=== PATIENT | male | born 1970 | race African-American/Black ===

== ENCOUNTER 2017-09-27 09:13 | Emergency (ER) | payer BC, OTHER ==
[2017-09-27 10:07] LABS: APPEARANCE,URINE CLEAR; BILIRUBIN,URINE NEGATIVE (NEGATIVE); COLOR,URINE STRAW; GLUCOSE, URINE >=500 mg/dL (NEGATIVE); KETONES,URINE NEGATIVE (NEGATIVE); LEUKOCYTE ESTERASE,URINE NEGATIVE (NEGATIVE); NITRITE,URINE NEGATIVE (NEGATIVE); PROTEIN,URINE NEGATIVE (NEGATIVE); URINE SPECIFIC GRAVITY 1.026; UROBILINOGEN,URINE NEGATIVE mg/dL (<2.0)
--- NOTE | 2017-09-27 10:35 | RADIOLOGY REPORT (SQ) ---
EXAM DESCRIPTION: CT HEAD WITHOUT COMPLETED DATE/TIME: 09/27/2017 10:20 am REASON FOR STUDY: dizzy COMPARISON: None. TECHNIQUE: Axial images acquired through the brain without intravenous contrast. Images reviewed wi th bone, brain and subdural windows. Images stored on PACS. All CT scanners at this facility use dose modulation, iterative reconstruction, and/or weight based d osing when appropriate to reduce radiation dose to as low as reasonably achievable (ALARA). [facility]: Dose Right [facility]: CareDose [facility]: Dose Right [facility]: Teradose 4D [facility]: [employer] RADIATION DOSE: CT Rad equipment meets quality standard of care and radiation dose reduction techniq ues were employed. CTDIvol: 64.6 mGy. DLP: 1163 mGy-cm. mGy. LIMITATIONS: None. FINDINGS: VENTRICLES: Normal size and contour. CEREBRUM: No masses. No hemorrhage. No midline shift. No evidence for acute infarction. Normal gra y/white matter differentiation. No areas of low density in the white matter. CEREBELLUM: No masses. No hemorrhage. No alteration of density. No evidence for acute infarction. EXTRAAXIAL SPACES: No fluid collections. No masses. ORBITS AND GLOBE: No intra- or extraconal masses. Normal contour of globe without masses. CALVARIUM: No fracture. PARANASAL SINUSES: Fluid left maxillary sinus. SOFT TISSUES: No mass or hematoma. OTHER: No other significant finding. IMPRESSION: NORMAL BRAIN CT WITHOUT CONTRAST. EVIDENCE OF ACUTE STROKE: NO. COMMENT: Quality ID # [id number]: Final reports with documentation of one or more dose reduction techniques (e.g., Automated exposure control, adjustment of the mA and/or kV according to patient size, use of iterative reconstruction technique) TECHNICAL DOCUMENTATION: JOB ID: [id number] All Rights Reserved
[2017-09-27] MEDS ORDERED: AMLODIPINE BESYLATE 10 MG TABLET PO ONE (10:37)
[2017-09-27 10:42] LABS: ABSOLUTE BASOPHILS # (AUTO) 0.1 10^3/uL (0.0-0.2); ABSOLUTE EOSINOPHILS # (AUTO) 0.1 10^3/uL (0.0-0.6); ABSOLUTE LYMPHOCYTES (AUTO) 2.5 10^3/uL (0.5-4.7); ABSOLUTE MONOCYTES (AUTO) 0.3 10^3/uL (0.1-1.4); ABSOLUTE NEUT (AUTO) 2.9 10^3/uL (1.7-8.2); BASOPHILS % (AUTO) 0.9 % (0-2); EOSINOPHILS % (AUTO) 1.7 % (0-6); HEMATOCRIT 42.2 % (37.9-51.0); HEMOGLOBIN 14.3 g/dL (13.5-17.0); LYMPHOCYTES % (AUTO) 42.7 % (13-45); MEAN CORPUSCULAR HEMOGLOBIN 28.4 pg (27.0-33.4); MEAN CORPUSCULAR HGB CONC 33.9 g/dL (32.0-36.0); MEAN CORPUSCULAR VOLUME 84 fl (80-97); MONOCYTES % (AUTO) 5.6 % (3-13); PLATELET COUNT 191 10^3/uL (150-450); RED BLOOD COUNT 5.04 10^6/uL (4.35-5.55); SEGMENTED NEUTROPHILS % (AUTO) 49.1 % (42-78); TOTAL CELLS COUNTED % (AUTO) 100 %; WHITE BLOOD COUNT 5.9 10^3/uL (4.0-10.5)
[2017-09-27] MEDS ORDERED: NORMAL SALINE 1000 ML 1,000 ML IV ONE (10:57)
[2017-09-27 11:03] LABS: ALANINE AMINOTRANSFERASE 41 U/L (21-72); ALBUMIN 4.1 g/dL (3.5-5.0); ALKALINE PHOSPHATASE 111 U/L (38-126); ANION GAP 9 (5-19); ASPARTATE AMINO TRANSFERASE 42 U/L (17-59); BILIRUBIN,DIRECT 0.4 mg/dL (0.0-0.4); BILIRUBIN,TOTAL 0.6 mg/dL (0.2-1.3); BLOOD UREA NITROGEN 11 mg/dL (7-20); CALCIUM 9.7 mg/dL (8.4-10.2); CARBON DIOXIDE 26 mmol/L (22-30); CHLORIDE 98 mmol/L (98-107); CREATINE KINASE 394 U/L (55-170); GLUCOSE 372 mg/dL (75-110); LIPASE 64.3 U/L (23-300); POTASSIUM 4.7 mmol/L (3.6-5.0); SODIUM 133.3 mmol/L (137-145); TOTAL PROTEIN 7.5 g/dL (6.3-8.2)
--- NOTE | 2017-09-27 11:09 | ER Document Report ---
ED General - General Chief Complaint: Dizziness Stated Complaint: DIZZY Time Seen by Provider: 09/27/17 09:25 Mode of Arrival: Ambulatory Information source: Patient Notes: 47-year-old male presents with complaints of dizziness not feeling well, patient denies any fevers or chills notes that he has not taken his blood pressure medication amlodipine appropriately. - HPI Onset: Last week Onset/Duration: Persistent Quality of pain: No pain Severity: Mild Pain Level: Denies Associated symptoms: Other - Dizziness Exacerbated by: Denies Relieved by: Denies Similar symptoms previously: No Recently seen / treated by doctor: No - Related Data Allergies/Adverse Reactions: No Known Allergies Allergy (Verified 09/27/17 09:17) Past Medical History - Social History Smoking Status: Never Smoker Cigarette use (# per day): No Chew tobacco use (# tins/day): No Smoking Education Provided: No Frequency of alcohol use: None Drug Abuse: None Family History: Reviewed & Not Pertinent Patient has suicidal ideation: No Patient has homicidal ideation: No - Past Medical History Cardiac Medical History: Reports: Hx Hypertension Renal/ Medical History: Denies: Hx Peritoneal Dialysis Past Surgical History: Reports: Hx Appendectomy, Hx Orthopedic Surgery - bilateral knees Review of Systems - Review of Systems Notes: REVIEW OF SYSTEMS: CONSTITUTIONAL : Denies fever, chills, or sweats. Denies recent illness. EENT: Denies eye, ear, throat, or mouth pain or symptoms. Denies nasal or sinus congestion or discharge. Denies throat, tongue, or mouth swelling or difficulty swallowing. CARDIOVASCULAR: Denies chest pain. Denies palpitations or racing or irregular heart beat. Denies ankle edema. RESPIRATORY: Denies cough, cold, or chest congestion. Denies shortness of breath, difficulty breathing, or wheezing. GASTROINTESTINAL: Denies abdominal pain or distention. Denies nausea, vomiting , or diarrhea. Denies blood in vomitus, stools, or per rectum. Denies black, tarry stools. Denies constipation. GENITOURINARY: Denies difficulty urinating, painful urination, burning, frequency, blood in urine, or discharge. MUSCULOSKELETAL: Denies back or neck pain or stiffness. Denies joint pain or swelling. SKIN: Denies rash, lesions or sores. HEMATOLOGIC : Denies easy bruising or bleeding. LYMPHATIC: Denies swollen, enlarged glands. NEUROLOGICAL: Admits dizziness PSYCHIATRIC: Denies anxiety or stress. Denies depression, suicidal ideation, or homicidal ideation. ALL OTHER SYSTEMS REVIEWED AND NEGATIVE. Dictation was performed using [employer] voice recognition software PHYSICAL EXAMINATION: GENERAL: Well-appearing, well-nourished and in no acute distress. HEAD: Atraumatic, normocephalic. EYES: Pupils equal round and reactive to light, extraocular movements intact, sclera anicteric, conjunctiva are normal. ENT: Nares patent, oropharynx clear without exudates. Moist mucous membranes. NECK: Normal range of motion, supple without lymphadenopathy LUNGS: Breath sounds clear to auscultation bilaterally and equal. No wheezes rales or rhonchi. HEART: Regular rate and rhythm without murmurs ABDOMEN: Soft, nontender, nondistended abdomen. No guarding, no rebound. No masses appreciated. Musculoskeletal: Normal range of motion, no pitting or edema. No cyanosis. NEUROLOGICAL: Cranial nerves grossly intact. Normal speech, normal gait. Normal sensory, motor exams PSYCH: Normal mood, normal affect. SKIN: Warm, Dry, normal turgor, no rashes or lesions noted. Physical Exam - Vital signs Vitals: Temp Pulse Resp BP Pulse Ox 98 F 85 14 169/107 H 99 09/27/17 09:20 09/27/17 09:20 09/27/17 09:20 09/27/17 09:20 09/27/17 09:20 Course - Re-evaluation Re-evalutation: Patient is noted to be hypertensive, his complaints are for medication refill but I will order extensive workup to rule out any life-threatening issues 09/27/17 11:09 blood sugar is 304 09/27/17 12:23 medicine consulted for management of new onset diabetes 09/27/17 13:20 Dr. Huang requests patient be started on Lipitor 80 mg daily as well as be started on metformin 500 mg twice daily Patient will be given follow-up with primary care physician After performing a Medical Screening Examination, I estimate there is LOW risk for RUPTURED ESOPHAGUS, PNEUMOTHORAX, PULMONARY EMBOLISM, ACUTE CORONARY SYNDROME, OR THORACIC AORTIC DISSECTION, thus I consider the discharge disposition reasonable. I have reevaluated this patient multiple times and no significant life threatening changes are noted. The patient and I have discussed the diagnosis and risks, and we agree with discharging home with close follow-up. We also discussed returning to the Emergency Department immediately if new or worsening symptoms occur. We have discussed the symptoms which are most concerning (e.g., bloody sputum, worsening pain or shortness of breath) that necessitate immediate return. - Vital Signs Vital signs: Temp Pulse Resp BP Pulse Ox 98 F 85 16 169/107 H 99 09/27/17 09:20 09/27/17 09:20 09/27/17 09:42 09/27/17 09:20 09/27/17 09:20 - Laboratory Result Diagrams: 09/27/17 10:15 09/27/17 10:15 Laboratory results interpreted by me: 09/27/17 09/27/17 09/27/17 09:44 10:15 10:15 Sodium 133.3 L Glucose 372 H POC Glucose Hemoglobin A1c % > 14.0 H Creatine Kinase 394 H Urine Glucose (UA) >=500 H 09/27/17 10:45 Sodium Glucose POC Glucose 305 H Hemoglobin A1c % Creatine Kinase Urine Glucose (UA) - Diagnostic Test Radiology reviewed: Image reviewed, Reports reviewed Critical Care Note - Critical Care Note Total time excluding time spent on procedures (mins): 34 Comments: 34 minutes of critical care time spent in direct contact evaluating and reevaluating the patient, treating symptoms, reviewing labs and studies and speaking with family and consultants excluding any procedures Discharge - Discharge Clinical Impression: New onset type 2 diabetes mellitus, Hypertension, uncontrolled Condition: Stable Disposition: HOME, SELF-CARE Instructions: Diabetes ([facility]) Additional Instructions: Follow up with your physician tomorrow for further care or return to the ED IMMEDIATELY if symptoms worsen or new concerns occur. If you cannot afford to follow up with your primary care physician a list of low cost clinics have been provided at the end of your discharge papers as well. Prescriptions: Atorvastatin Calcium [Lipitor 80 mg Tablet] 80 mg PO QHS #30 tablet RX: Amlodipine Besylate [Norvasc 10 mg Tablet] 20 mg PO DAILY #30 tablet RX: Metformin HCl [Glucophage 500 mg Tablet] 500 mg PO BID #60 tablet
[2017-09-27 11:14] LABS: CREATINE KINASE MB 2.73 ng/mL (<4.55)
[2017-09-27 11:15] LABS: TROPONIN I < 0.012 ng/mL
[2017-09-27 13:23] VITALS: BP 140/95
--- NOTE | 2017-09-27 14:48 | PDOC CONSULTATION ---
Consultation Consult Date: 09/27/17 Attending physician:: FABBY FINK Consult reason:: New diabetes diagnosis History of Present Illness Admission Date/PCP: None, seen at the [facility] Patient complains of: lightheadness History of Present Illness: LOGAN GALVIN SR is a 47 year old male with history of HTN who presents with one day of lightheadness and dizziness. Patient states that over last week had noticed vague abdominal symptoms including nausea and increased queasiness. Also has noticed increased thirst and urinary frequency. Has history of HTN and has been on Norvasc for a "while" however has not taken it the last 2 weeks. Over last year has been more stressed. Diet is poor, per his . He has not been exercising and has noticed some weight gain. Denies recent illnesses, fevers, chills, CP, SOB, vomiting. Father has diabetes. Followed at the [facility] but has not been seen in over 6 months and is scheduled to see a provider in December 2017. Consulted by ED provider for management of new diabetes. Past Medical History Cardiac Medical History: Reports: Hypertension Past Surgical History Past Surgical History: Reports: Appendectomy, Orthopedic Surgery - bilateral knees Social History Information Source: Patient Smoking Status: Never Smoker Frequency of Alcohol Use: Rare Hx Recreational Drug Use: No Family History Family History: Reviewed & Not Pertinent Parental Family History Reviewed: Yes - Father with diabetes, no other hx of DM per pt Children Family History Reviewed: NA Sibling(s) Family History Reviewed.: NA Medication/Allergy Home Medications: Amlodipine Besylate [Norvasc 10 mg Tablet] 20 mg PO DAILY #30 tablet 09/27/17 Atorvastatin Calcium [Lipitor 80 mg Tablet] 80 mg PO QHS #30 tablet 09/27/17 Metformin HCl [Glucophage 500 mg Tablet] 500 mg PO BID #60 tablet 09/27/17 Allergies/Adverse Reactions: No Known Allergies Allergy (Verified 09/27/17 09:17) Physical Exam Vital Signs: Temp Pulse Resp BP Pulse Ox 98 F 78 20 140/95 H 98 09/27/17 09:20 09/27/17 13:59 09/27/17 13:59 09/27/17 13:59 09/27/17 13:59 Intake & Output 09/26/17 09/27/17 09/28/17 06:59 06:59 06:59 Weight 141.9 kg General appearance: PRESENT: no acute distress, obese Head exam: PRESENT: atraumatic, normocephalic Mouth exam: PRESENT: moist Teeth exam: ABSENT: poor dentation Neck exam: PRESENT: full ROM Respiratory exam: PRESENT: unlabored. ABSENT: tachypnea Cardiovascular exam: PRESENT: RRR, +S1, +S2. ABSENT: systolic murmur GI/Abdominal exam: PRESENT: guarding, soft. ABSENT: firm, tenderness Musculoskeletal exam: PRESENT: full ROM Neurological exam: PRESENT: alert, awake, CN II-XII grossly intact Psychiatric exam: ABSENT: anxious Results Laboratory Results: 09/27/17 10:15 09/27/17 10:15 09/27/17 09/27/17 09/27/17 09:44 10:15 10:15 WBC 5.9 RBC 5.04 Hgb 14.3 Hct 42.2 MCV 84 MCH 28.4 MCHC 33.9 RDW 14.0 Plt Count 191 Seg Neutrophils % 49.1 Lymphocytes % 42.7 Monocytes % 5.6 Eosinophils % 1.7 Basophils % 0.9 Absolute Neutrophils 2.9 Absolute Lymphocytes 2.5 Absolute Monocytes 0.3 Absolute Eosinophils 0.1 Absolute Basophils 0.1 Sodium 133.3 L Potassium 4.7 Chloride 98 Carbon Dioxide 26 Anion Gap 9 BUN 11 Creatinine 0.59 Est GFR ( Amer) > 60 Est GFR (Non-Af Amer) > 60 Glucose 372 H Calcium 9.7 Total Bilirubin 0.6 AST 42 ALT 41 Alkaline Phosphatase 111 Total Protein 7.5 Albumin 4.1 Lipase 64.3 Urine Color STRAW Urine Appearance CLEAR Urine pH 6.0 Ur Specific [place] 1.026 Urine Protein NEGATIVE Urine Glucose (UA) >=500 H Urine Ketones NEGATIVE Urine Blood NEGATIVE Urine Nitrite NEGATIVE Ur Leukocyte Esterase NEGATIVE Urine WBC (Auto) 0 Urine RBC (Auto) 1 09/27/17 09/27/17 10:15 10:15 Creatine Kinase 394 H CK-MB (CK-2) 2.73 Troponin I < 0.012 Impressions: Head CT 09/27/17 09:51 IMPRESSION: NORMAL BRAIN CT WITHOUT CONTRAST. EVIDENCE OF ACUTE STROKE: NO. Assessment & Plan - Diagnosis (2) Obesity Qualifiers: Obesity type: due to excess calories Obesity classification: adult class 3 (BMI >= 40) Serious obesity comorbidity presence: without serious comorbidity Is this a current diagnosis for this admission?: Yes Plan: Patient presenting with lightheadness/dizziness, polyuria, polydipsia. - ER labs notable for glucose 372, HgA1c >14%, and urine glucose >500 - Long discussion of diabetes diagnosis, management, and potential micro vascular and macro vascular complications - Ideally pt should be started on insulin since Hg>10%. However I did not feel comfortable starting patient on Insulin as patient has never received insulin education, does not have glucometer at home, and currently does not have close PCP follow-up - Admission to hospital would have been ideal however patient wanted to be discharged to home - Script given for Metformin 500mg BID which can be increased to 1000mg BID if tolerated. - [facility] with provider to start Insulin, receiving appropriate home supplies, and, receive diabetes counseling - Discussed importance of diet and exercise - Script given for [id number] qhs given high lifetime ASCVD risk (69%, based on estimated/conservative lipid profile, likely to be higher with actual lipid profile) - RN gave information about diabetic diet and list of local PCPs (3) Hypertension, uncontrolled Is this a current diagnosis for this admission?: Yes Plan: On Amlodipine at home. Has not been taking for last 2 weeks - Script for amlodipine 20mg daily - Should also be on Lisinopril given diabetes diagnosis. Will defer to PCP to start. - Goal SBP <130 - Time Time Spent: 30 to 50 Minutes Anticipated discharge: Home Disposition: Discharge to home from ER with close outpatient follow up
--- NOTE | 2017-09-27 16:01 | EKG REPORT ---
SEVERITY:- ABNORMAL ECG - SINUS RHYTHM VENTRICULAR PREMATURE COMPLEX LEFT ANTERIOR FASCICULAR BLOCK : Confirmed by: Miguel A Lamb MD 27-Sep-2017 16:00:47
== END 2017-09-27 14:00 | disposition home or self-care (01) ==
LOC: ER 09:13
DX: E11.9 Type 2 diabetes mellitus without complications (principal); I10 Essential (primary) hypertension; R42 Dizziness and giddiness
CPT/HCPCS: 93005; 99284; 96360; 36415; 82553; 82962; 82550; 83690; 85025; 80053; 81001; 84484; 83036; 70450; 93010; J7030

== ENCOUNTER 2018-05-30 04:35 | Emergency (ER) | payer BC ==
--- NOTE | 2018-05-30 05:00 | ER Document Report ---
Doctor's Note Notes: 05/30/18 04:59 I performed a quick triage evaluation the patient. Patient is a 47-year-old male who presents with complaint of palpitations. No chest pain associated with it. The symptoms started tonight. Says only thing he can think that he did differently was that he did have some caffeine today. He has some cough in the morning and then around 8 PM he had some T. He says caffeine does affect him but not to this extent. His symptoms started approximately 2-3 hours after drinking the tea. He denies any drug use. He does not smoke. No alcohol use. He does take amlodipine as well as lisinopril hydrochlorothiazide. He has been taking his medications and denies missing any dosages. He denies any recent changes in the dosages. He is says that his heartbeat is feeling improved and that he does not feels if it is racing anymore. On exam he does have symptoms sweat beads on his head and face which him and his both say that he does sweat a lot and that this is not abnormal for him however he does feel that may be sweat a little bit more than usual tonight. His EKG does not show any evidence of acute IN at this time. Clinically he otherwise looks well. His lung fairchild are clear. I do not hear a murmur. I have ordered baseline blood work as well as heart enzymes and chest x-ray. Will place him on a monitor. Dictation of this chart was performed using voice recognition software; therefore, there may be some unintended grammatical errors.
[2018-05-30 05:34] LABS: ABSOLUTE BASOPHILS # (AUTO) 0.1 10^3/uL (0.0-0.2); ABSOLUTE EOSINOPHILS # (AUTO) 0.1 10^3/uL (0.0-0.6); ABSOLUTE LYMPHOCYTES (AUTO) 2.7 10^3/uL (0.5-4.7); ABSOLUTE MONOCYTES (AUTO) 0.5 10^3/uL (0.1-1.4); BASOPHILS % (AUTO) 0.8 % (0-2); HEMATOCRIT 41.7 % (37.9-51.0); HEMOGLOBIN 14.2 g/dL (13.5-17.0); LYMPHOCYTES % (AUTO) 36.8 % (13-45); MEAN CORPUSCULAR HEMOGLOBIN 28.5 pg (27.0-33.4); MEAN CORPUSCULAR HGB CONC 33.9 g/dL (32.0-36.0); MEAN CORPUSCULAR VOLUME 84 fl (80-97); MONOCYTES % (AUTO) 6.2 % (3-13); PLATELET COUNT 230 10^3/uL (150-450); RED BLOOD COUNT 4.97 10^6/uL (4.35-5.55); RED CELL DISTRIBUTION WIDTH 14.5 % (11.5-14.0); SEGMENTED NEUTROPHILS % (AUTO) 54.2 % (42-78); TOTAL CELLS COUNTED % (AUTO) 100 %; WHITE BLOOD COUNT 7.3 10^3/uL (4.0-10.5)
--- NOTE | 2018-05-30 05:35 | RADIOLOGY REPORT (SQ) ---
EXAM DESCRIPTION: XR CHEST 1 VIEW COMPLETED DATE/TME: 05/30/2018 04:58 CLINICAL HISTORY: palpitations COMPARISON: None. FINDINGS: Single frontal view of the chest. Leads overlie the chest. The cardiomediastinal silhouette has normal size and contour. No consolidation, pneumothorax, or pleural effusion. No displaced rib fractures identified. Upper abdominal soft tissues are unremarkable. IMPRESSION: 1. No acute pulmonary process identified.
[2018-05-30 06:49] LABS: ALANINE AMINOTRANSFERASE 33 U/L (21-72); ALBUMIN 4.2 g/dL (3.5-5.0); ALKALINE PHOSPHATASE 105 U/L (38-126); ANION GAP 9 (5-19); ASPARTATE AMINO TRANSFERASE 40 U/L (17-59); BILIRUBIN,DIRECT 0.5 mg/dL (0.0-0.4); BILIRUBIN,TOTAL 0.5 mg/dL (0.2-1.3); BLOOD UREA NITROGEN 20 mg/dL (7-20); CALCIUM 9.8 mg/dL (8.4-10.2); CARBON DIOXIDE 27 mmol/L (22-30); CHLORIDE 102 mmol/L (98-107); GLUCOSE 154 mg/dL (75-110); POTASSIUM 4.5 mmol/L (3.6-5.0); SODIUM 137.9 mmol/L (137-145); TOTAL PROTEIN 7.9 g/dL (6.3-8.2)
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
[2018-05-30 09:07] VITALS: BP 150/75
--- NOTE | 2018-05-30 18:49 | EKG REPORT ---
SEVERITY:- ABNORMAL ECG - SINUS TACHYCARDIA LEFT ANTERIOR FASCICULAR BLOCK : Confirmed by: Jeremie Peña 30-May-2018 18:48:36
== END 2018-05-30 09:08 | disposition home or self-care (01) ==
LOC: ER 04:35
DX: R00.2 Palpitations (principal); I10 Essential (primary) hypertension; E11.9 Type 2 diabetes mellitus without complications
CPT/HCPCS: 36415; 71045; 80053; 83735; 84484; 85025; 85379; 93005; 93010; 99285

== ENCOUNTER 2018-06-14 03:06 | Emergency (ER) | payer BC ==
[2018-06-14 04:28] LABS: ABSOLUTE EOSINOPHILS # (AUTO) 0.1 10^3/uL (0.0-0.6); ABSOLUTE LYMPHOCYTES (AUTO) 2.3 10^3/uL (0.5-4.7); ABSOLUTE MONOCYTES (AUTO) 0.4 10^3/uL (0.1-1.4); ABSOLUTE NEUT (AUTO) 4.5 10^3/uL (1.7-8.2); BASOPHILS % (AUTO) 0.4 % (0-2); EOSINOPHILS % (AUTO) 1.7 % (0-6); HEMATOCRIT 41.9 % (37.9-51.0); HEMOGLOBIN 13.9 g/dL (13.5-17.0); LYMPHOCYTES % (AUTO) 30.7 % (13-45); MEAN CORPUSCULAR HEMOGLOBIN 28.2 pg (27.0-33.4); MEAN CORPUSCULAR HGB CONC 33.3 g/dL (32.0-36.0); MEAN CORPUSCULAR VOLUME 85 fl (80-97); MONOCYTES % (AUTO) 5.8 % (3-13); PLATELET COUNT 224 10^3/uL (150-450); RED BLOOD COUNT 4.94 10^6/uL (4.35-5.55); RED CELL DISTRIBUTION WIDTH 14.7 % (11.5-14.0); SEGMENTED NEUTROPHILS % (AUTO) 61.4 % (42-78); TOTAL CELLS COUNTED % (AUTO) 100 %; WHITE BLOOD COUNT 7.4 10^3/uL (4.0-10.5)
--- NOTE | 2018-06-14 04:36 | ER Document Report ---
ED General - General TRAVEL OUTSIDE OF THE [place] IN LAST 30 DAYS: No <RA ORTIZ - Last Filed: 06/14/18 06:58> <RANDY SOLANO - Last Filed: 06/14/18 09:13> - General Chief Complaint: Palpitations Stated Complaint: FAST HEARTBEAT,DIZZINESS,HIGH BLOOD PRESSURE Time Seen by Provider: 06/14/18 04:10 Notes: Patient is a 47-year-old male presenting to the emergency department complaining of a heart. Patient states he all of a sudden awoke this morning feeling as though his heart was racing and he also felt dizzy. Patient states he was also short of breath at that time. Patient denies chest pain, chest tightness, chest pressure, breaking out in a sweat. Patient states he used his at home blood pressure machine that read his heart rate at 104 with a blood pressure of 179/104. Patient states currently in the emergency department he no longer feels like his heart is racing, he no longer feels dizzy, he continues without chest pain, tightness, pressure, denies shortness of breath. Patient also denies headache. Patient states he has never had a stress test or an echo. Patient states a similar episode like this happened a couple of months ago. He presented to the emergency department with a negative workup. Patient states he never followed up with primary care. Past medical history: Hypertension, diabetes, arthritis Medications: Lisinopril, amlodipine, Tresiba, Motrin Allergies: None Surgical history: Appendectomy Patient states primary care provider is Dr. Nelson (RA ORTIZ) - Related Data Allergies/Adverse Reactions: No Known Allergies Allergy (Verified 06/14/18 07:39) Past Medical History - General Information source: Patient - Social History Smoking Status: Never Smoker Lives with: Family Family History: Reviewed & Not Pertinent - Past Medical History Cardiac Medical History: Reports: Hx Hypertension Endocrine Medical History: Reports: Hx Diabetes Mellitus Type 2 Renal/ Medical History: Denies: Hx Peritoneal Dialysis Past Surgical History: Reports: Hx Appendectomy, Hx Orthopedic Surgery - bilateral knees <RA ORTIZ - Last Filed: 06/14/18 06:58> Review of Systems - Review of Systems Constitutional: See HPI EENT: See HPI Cardiovascular: See HPI Respiratory: See HPI Gastrointestinal: See HPI Genitourinary: See HPI Male Genitourinary: No symptoms reported Musculoskeletal: See HPI Skin: No symptoms reported Hematologic/Lymphatic: No symptoms reported Neurological/Psychological: No symptoms reported <RA ORTIZ - Last Filed: 06/14/18 06:58> Physical Exam <RA ORTIZ - Last Filed: 06/14/18 06:58> <RANDY SOLANO - Last Filed: 06/14/18 09:13> - Vital signs Vitals: Temp Pulse Resp BP Pulse Ox 98.4 F 93 22 H 161/91 H 99 06/14/18 03:20 06/14/18 03:20 06/14/18 03:20 06/14/18 03:20 06/14/18 03:20 - Notes Notes: GENERAL: Alert, interacts well. No acute distress. HEAD: Normocephalic, atraumatic. EYES: Pupils equal, round, and reactive to light. Extraocular movements intact. ENT: Oral mucosa moist, tongue midline. NECK: Full range of motion. Supple. Trachea midline. LUNGS: Clear to auscultation bilaterally, no wheezes, rales, or rhonchi. No respiratory distress. HEART: Regular rate and rhythm. No murmur ABDOMEN: Obese soft, non-tender. Non-distended. Bowel sounds present in all 4 quadrants. EXTREMITIES: Moves all 4 extremities spontaneously. No edema, normal radial and dorsalis pedis pulses bilaterally. No cyanosis. BACK: no cervical, thoracic, lumbar midline tenderness. No saddle anesthesia, normal distal neurovascular exam. NEUROLOGICAL: Alert and oriented x3. Normal speech. cranial nerves II through XII grossly intact PSYCH: Normal affect, normal mood. SKIN: Warm, dry, normal turgor. No rashes or lesions noted. (RA ORTIZ) Course - Laboratory Result Diagrams: 06/14/18 04:12 06/14/18 04:12 <RA ORTIZ - Last Filed: 06/14/18 06:58> - Laboratory Result Diagrams: 06/14/18 04:12 06/14/18 04:12 <RANDY SOLANO - Last Filed: 06/14/18 09:13> - Re-evaluation Re-evalutation: 06/14/18 06:55 Discussed with patient initial lab results. Discussed repeat troponin at 0 700 and also talked to patient will follow up with primary care and inevitably cardiology. Cardiology referral will be given. Patient continues to deny chest pain, tightness, pressure. Patient states since being in the emergency room he has not felt his heart race nor has he been dizzy. Patient's blood pressure is 139/90. Heart rate 72, respiratory rate 20, SPO2 99% on room air. 06/14/18 06:56 Pt. care and report given to Sumit Solano [employer] at shift change (RA ORTIZ) 06/14/18 07:14 assumed care of the pt. : at 0200 he rolled over on his right side and had a few seconds of vertigo (sensation of movement) like he was drunk that made him sit up. At that time when he was trying to figure out what was going on he felt his heart racing similar to when he was here several months ago. The episode several months ago did not have vertigo. Primary care doctor is Dr. Andrews. He has not seen a leather staker. I have added a urinalysis, urine drug screen, and a TSH. 06/14/18 09:11 Second troponin is negative, TSH is within normal limits, urinalysis is dilute and negative, urine drug screen is negative. I will send him to Dr. Nelson his primary care doctor with a cardiology referral. Vital signs are stable. 06/14/18 09:13 (RANYD SOLANO) - Vital Signs Vital signs: Temp Pulse Resp BP Pulse Ox 98.0 F 93 14 139/91 H 100 06/14/18 08:45 06/14/18 03:20 06/14/18 08:00 06/14/18 06:00 06/14/18 08:00 - Laboratory Laboratory results interpreted by me: 06/14/18 06/14/18 04:12 04:12 RDW 14.7 H Glucose 151 H Creatine Kinase 614 H Discharge <RA ORTIZ - Last Filed: 06/14/18 06:58> <RANDY SOLANO - Last Filed: 06/14/18 09:13> - Discharge Clinical Impression: Heart palpitations, Episode of vertigo Condition: Stable Instructions: Palpitations (Irregular or Rapid Heartrate) ([facility]), Dizziness ([facility] ) Additional Instructions: As we discussed your cardiac labs came back normal. You should follow-up with your primary care in the next 24-48 hours. Please return to the emergency room for any other concerning symptoms. Forms: Return to Work Referrals: CATRACHO ANDREWS MD [Primary Care Provider] - Follow up as needed CARLA COLLAZO MD [EMERITUS] - Follow up as needed
[2018-06-14 04:39] LABS: ALANINE AMINOTRANSFERASE 34 U/L (21-72); ALBUMIN 4.1 g/dL (3.5-5.0); ALKALINE PHOSPHATASE 101 U/L (38-126); ANION GAP 11 (5-19); ASPARTATE AMINO TRANSFERASE 32 U/L (17-59); BILIRUBIN,DIRECT 0.1 mg/dL (0.0-0.4); BILIRUBIN,TOTAL 0.5 mg/dL (0.2-1.3); BLOOD UREA NITROGEN 14 mg/dL (7-20); CALCIUM 9.4 mg/dL (8.4-10.2); CARBON DIOXIDE 25 mmol/L (22-30); CHLORIDE 102 mmol/L (98-107); CREATINE KINASE 614 U/L (55-170); GLUCOSE 151 mg/dL (75-110); POTASSIUM 4.5 mmol/L (3.6-5.0); SODIUM 138.3 mmol/L (137-145); TOTAL PROTEIN 7.6 g/dL (6.3-8.2)
[2018-06-14 04:41] LABS: INTERNATIONAL RATION (INR) 0.93; PROTHROMBIN TIME 12.9 SEC (11.4-15.4)
--- NOTE | 2018-06-14 04:49 | RADIOLOGY REPORT (SQ) ---
EXAM DESCRIPTION: X-ray two view chest. CLINICAL HISTORY: 47 years Male, palpitations COMPARISON: Single view chest performed on 05/30/2018 TECHNIQUE: PA and Lateral views of the chest performed on 06/14/2018 at 5:05 AM FINDINGS: The lungs are well expanded and are clear. The costophrenic sulci are clear. There is no evidence of a pneumothorax. The cardiac silhouette is normal in size. The mediastinal contours are normal. No acute osseous abnormalities are identified. No focal soft tissue abnormalities are identified. IMPRESSION: No evidence of acute intrathoracic disease. No significant change since the prior study.
[2018-06-14 04:55] LABS: CREATINE KINASE MB 4.36 ng/mL (<4.55)
[2018-06-14] MEDS ORDERED: NORMAL SALINE 1000 ML 1,000 ML IV ONE (04:55)
[2018-06-14 04:56] LABS: TROPONIN I < 0.012 ng/mL
[2018-06-14 08:05] LABS: APPEARANCE,URINE CLEAR; BILIRUBIN,URINE NEGATIVE (NEGATIVE); COLOR,URINE COLORLESS; GLUCOSE, URINE NEGATIVE (NEGATIVE); KETONES,URINE NEGATIVE (NEGATIVE); LEUKOCYTE ESTERASE,URINE NEGATIVE (NEGATIVE); NITRITE,URINE NEGATIVE (NEGATIVE); PROTEIN,URINE NEGATIVE (NEGATIVE); URINE SPECIFIC GRAVITY 1.006; UROBILINOGEN,URINE NEGATIVE mg/dL (<2.0)
--- NOTE | 2018-06-14 08:08 | EKG REPORT ---
SEVERITY:- BORDERLINE ECG - SINUS RHYTHM LEFT AXIS DEVIATION BORDERLINE T WAVE ABNORMALITIES : Confirmed by: Jeremie Peña 14-Jun-2018 08:08:13
[2018-06-14 08:20] LABS: URINE AMPHETAMINES SCREEN NEGATIVE; URINE BARBITURATES SCREEN NEGATIVE; URINE BENZODIAZEPINES SCREEN NEGATIVE; URINE COCAINE SCREEN NEGATIVE; URINE MARIJUANA (THC) SCREEN NEGATIVE; URINE METHADONE SCREEN NEGATIVE; URINE PHENCYCLIDINE SCREEN NEGATIVE
[2018-06-14 09:32] VITALS: BP 128/79
== END 2018-06-14 09:33 | disposition home or self-care (01) ==
LOC: ER 03:06
DX: R00.2 Palpitations (principal); R42 Dizziness and giddiness; I10 Essential (primary) hypertension; E11.9 Type 2 diabetes mellitus without complications
CPT/HCPCS: 93005; 99285; 96360; 96361; 36415; 82553; 82550; 84443; 85025; 85610; 80053; 81001; 84484; 80307; 71046; 93010; J7030